=== PATIENT | male | born 1950 | race Caucasian/White ===

== ENCOUNTER → 2016-10-15 | Outpatient (CLI) | payer OTHER | LOC: RAD 08:36 | PROVIDERS: ATTEND Orthopaedic Surgery | DX: S83.91XD Sprain of unspecified site of right knee, subsequent encounter (principal); M25.461 Effusion, right knee ==

== ENCOUNTER → 2017-01-12 | Outpatient (CLI) | payer OTHER | LOC: LAB.O 14:32 | PROVIDERS: ATTEND Urology | DX: R97.20 Elevated prostate specific antigen [PSA] (principal) ==

== ENCOUNTER → 2017-07-20 | Outpatient (CLI) | payer MEDICARE, OTHER | END | disposition home or self-care (01) | LOC: LAB.O 14:40 | PROVIDERS: ATTEND Urology | DX: R97.20 Elevated prostate specific antigen [PSA] (principal) ==

== ENCOUNTER → 2017-10-03 | Outpatient (CLI) | payer MEDICARE, OTHER | END | disposition home or self-care (01) | LOC: GMAM 10:52 | PROVIDERS: ATTEND Family Medicine | DX: Z12.5 Encounter for screening for malignant neoplasm of prostate (principal); Z00.00 Encounter for general adult medical examination without abnormal findings ==

== ENCOUNTER → 2018-10-25 | Outpatient (CLI) | payer MEDICARE, OTHER ==
--- NOTE | 2018-10-25 15:45 | RAD ---
EXAM DESCRIPTION: Shoulder,Left 2 or More Views CLINICAL HISTORY: PAIN COMPARISON: None. IMPRESSION: 4 views of the left shoulder show no acute fracture, focal bone destruction, or joint dislocation. 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 Electronically signed by: Taz Girard MD 10/25/2018 3:43 PM [facility]
== END ==
LOC: LAB 13:53
PROVIDERS: ATTEND Orthopaedic Surgery
DX: M19.012 Primary osteoarthritis, left shoulder (principal); M25.512 Pain in left shoulder; R97.20 Elevated prostate specific antigen [PSA]